=== PATIENT | male | born 1955 | race Two or more races ===

== ENCOUNTER 2020-09-05 23:27 | Emergency (ER) | payer MEDICARE, MEDICAID ==
[~2020-09-05] VITALS: Ht 175.3 cm; Wt 110.7 kg
--- NOTE | 2020-09-05 23:49 | NUR ---
Pt PAMELLA from [facility] for syncopal episode. Pt states he was waiting in line for some pizza and then felt sick to his stomach and light headed, the next thing he remembers is waking up with people around him. Patient states he is from out of town, lives in [place]. Has a history of [place], CVA. Patient states he feel better at this time. Patient places on panel monitor, and continous pulse ox. VSS, patient resting at this time. Will con't to monitor.
[2020-09-06 00:08] LABS: BASOPHILS % (AUTO) 1 % (0-1); EOSINOPHILS % (AUTO) 1 % (1-7); LYMPHOCYTES % (AUTO) 35 % (22-44); MEAN CORPUSCULAR HEMOGLOBIN 31.6 pg (27.5-34.5); MEAN CORPUSCULAR HGB CONC 33.1 g/dL (33.2-36.2); MONOCYTES % (AUTO) 6 % (2-9); NEUTROPHILS % (AUTO) 58 % (42-75); PLATELET COUNT 229 x10^3/uL (130-400); RED BLOOD COUNT 4.48 x10^6/uL (4.38-5.82); RED CELL DISTRIBUTION WIDTH 13.9 % (9.4-14.8)
[2020-09-06 00:10] LABS: ANION GAP 7 mmol/L (5-15); CHLORIDE 108 mmol/L (98-107); MD NO
[2020-09-06 00:14] LABS: TROPONIN I < 0.015 ng/mL (0.000-0.045)
[2020-09-06 01:45] VITALS: BP 128/71
== END 2020-09-06 01:47 | disposition home or self-care (01) ==
LOC: ED 23:59
DX: R55 Syncope and collapse (principal); R42 Dizziness and giddiness; R94.31 Abnormal electrocardiogram [ECG] [EKG]; I10 Essential (primary) hypertension; I25.2 Old myocardial infarction; E78.00 Pure hypercholesterolemia, unspecified; J44.9 Chronic obstructive pulmonary disease, unspecified; Z86.73 Personal history of transient ischemic attack (TIA), and cerebral infarction without residual deficits; F17.290 Nicotine dependence, other tobacco product, uncomplicated
CPT/HCPCS: 36415; 71045; 80048; 82040; 84484; 85025; 93005; 99285